=== PATIENT | female | born 1945 | race Caucasian/White ===

== ENCOUNTER → 2023-09-14 08:47 | Outpatient (REF) | payer MEDICARE, BC, SELFPAY | LOC: WDC 08:47 | PROVIDERS: ATTENDING PHYSICIAN Student in an Organized Health Care Education/Training Program | DX: Z12.31 Encounter for screening mammogram for malignant neoplasm of breast (principal) | CPT/HCPCS: 77063; 77067 ==

== ENCOUNTER → 2023-10-21 10:01 | Outpatient (REF) | payer MEDICARE, BC, SELFPAY | LOC: HWRCS 10:01 | PROVIDERS: ATTENDING PHYSICIAN Internal Medicine Cardiovascular Disease | DX: Z98.890 Other specified postprocedural states (principal) | CPT/HCPCS: 93306 ==

== ENCOUNTER → 2024-02-14 15:14 | Outpatient (REF) | payer MEDICARE, BC, SELFPAY | LOC: HWRAD 15:14 | DX: R05.1 Acute cough (principal) | CPT/HCPCS: 71046 ==

== ENCOUNTER → 2024-02-24 15:08 | Outpatient (REF) | payer MEDICARE, BC, SELFPAY | LOC: HWRAD 15:08 | DX: R05.3 Chronic cough (principal) | CPT/HCPCS: 71046 ==

== ENCOUNTER → 2024-04-24 13:01 | Outpatient (REF) | payer MEDICARE, BC, SELFPAY | LOC: HWRAD 13:01 | DX: Z13.820 Encounter for screening for osteoporosis (principal); Z78.0 Asymptomatic menopausal state; N95.1 Menopausal and female climacteric states | CPT/HCPCS: 77080 ==

== ENCOUNTER → 2024-06-06 12:59 | Outpatient (REF) | payer MEDICARE, BC, SELFPAY ==
[2024-06-06 14:47] LABS: Urine Albumin Negative (Neg - Trace); Urine Bilirubin Negative (Negative); Urine Character Clear (Clear); Urine Color Yellow; Urine Glucose Negative (Negative); Urine Ketone Negative (Negative); Urine Leukocyte Negative (Negative); Urine Nitrite Negative (Negative); Urine Occult Blood Negative (Negative); Urine Urobilinogen Negative (Neg - 1+)
== END ==
LOC: HWLAB 12:59
PROVIDERS: ATTENDING PHYSICIAN Student in an Organized Health Care Education/Training Program
DX: R79.89 Other specified abnormal findings of blood chemistry (principal)
CPT/HCPCS: 36415; 81003

== ENCOUNTER → 2024-06-30 09:57 | Outpatient (REF) | payer MEDICARE, BC, SELFPAY | LOC: RAD 09:57 | DX: R55 Syncope and collapse (principal); Z95.2 Presence of prosthetic heart valve | CPT/HCPCS: 93306; 93880 ==